=== PATIENT | male | born 1985 | race Two or more races ===

== ENCOUNTER 2021-11-08 19:07 | Emergency (ER) | payer OTHER ==
[~2021-11-08] VITALS: Ht 180.3 cm; Wt 70.3 kg
[2021-11-09] MEDS ORDERED: MEDROLPACK PO (05:18)
[2021-11-09] MEDS ORDERED: BENADRYL ALLERG25 MG PO (05:18)
== END 2021-11-09 05:44 | disposition home or self-care (01) ==
LOC: ER 19:07
DX: T78.40XA Allergy, unspecified, initial encounter (principal)